=== PATIENT | female | born 1930 | race Caucasian/White ===

== ENCOUNTER 2017-12-16 09:08 | Observation (INO) | payer MEDICARE ==
[~2017-12-16] VITALS: Ht 165.1 cm; Wt 51.9 kg
[~2017-12-16 09:08] MED LIST: AMLODIPINE BESY10 MG; LISINOPRIL10 MG; NORCO 7.5-3251 EACH PO; PLAVIX75 MG PO
[2017-12-16] MEDS ORDERED: ASPIRIN 325 MG TAB PO ONE (09:45)
[2017-12-16 10:36] LABS: BASOPHILS % 0.4 % (0.0-1.0); EOSINOPHILS # (AUTO) 0.1 (0.0-0.4); EOSINOPHILS % 2.1 % (0.0-6.0); HEMATOCRIT 41.2 % (34.2-44.1); HEMOGLOBIN 13.3 g/dL (12.0-16.0); LYMPHOCYTES # (AUTO) 0.8 (1.0-3.2); LYMPHOCYTES % 15.4 % (18.0-39.1); MEAN CORPUSCULAR HEMOGLOBIN 27.9 pg (28-32); MEAN CORPUSCULAR HGB CONC 32.3 g/dL (31-35); MEAN CORPUSCULAR VOLUME 86.6 fL (81-99); MONOCYTES # (AUTO) 1.1 (0.2-0.8); MONOCYTES % 19.7 % (4.4-11.3); NEUTROPHILS # (AUTO) 3.3 (2.1-6.9); PLATELET COUNT 195 x10e3/uL (140-360); RED BLOOD COUNT 4.76 x10e6/uL (3.6-5.1); RED CELL DISTRIBUTION WIDTH 14.3 % (11.7-14.4)
[2017-12-16 10:46] LABS: INR 1.09; PARTIAL THROMBOPLASTIN TIME 27.6 seconds (23.8-35.5); PROTHROMBIN TIME 13.3 seconds (11.9-14.5)
--- NOTE | 2017-12-16 10:49 | Diagnostic Imaging Report ---
PROCEDURE: CHEST SINGLE (PORTABLE) COMPARISON: 10/17/2013. INDICATIONS: CHEST PAIN FINDINGS: Lungs remain well-inflated. No focal consolidation, pleural effusion, or pneumothorax. Stable cardiomediastinal contour with tortuosity of the thoracic aorta. Normal heart size. No pulmonary edema. No acute osseous abnormality. CONCLUSION: No acute cardiopulmonary abnormality. Dictated by: Daniel Zavala M.D. on 12/16/2017 at 10:52 Electronically approved by: Daniel Zavala M.D. on 12/16/2017 at 10:52
[2017-12-16 10:53] LABS: ALBUMIN/GLOBULIN RATIO 1.3 (0.8-2.0); ANION GAP 12.9 mmol/L (8-16); CALCIUM 9.8 mg/dL (8.4-10.2); CREATININE, SERUM 1.28 mg/dL (0.57-1.11); POTASSIUM 3.9 mmol/L (3.5-5.1)
[2017-12-16] MEDS ORDERED: SODIUM CHLORIDE 0.9% 500ML 500 ML IV ONE (11:45)
--- NOTE | 2017-12-16 14:02 | Diagnostic Imaging Report ---
EXAM: CTA OF THE THORACIC AORTA INDICATION: \S\r/o dissection \[id number] \S\1300 COMPARISON: Chest radiograph 12/16/2017 and 10/17/2013 TECHNIQUE: Multi-detector CT technology was employed. CTA Gated axial imaging of the chest was performed after the administration of IV contrast. IV CONTRAST: 100 mL of Omnipaque 350 ORAL CONTRAST: None COMPLICATIONS: None RADIATION DOSE: Total DLP: 618.97 mGy*cm Estimated effective dose: (DLP x 0.015 x size factor) mSv CTDIvol has been reviewed. It is below the limits set by the Radiation Protocol Committee (RPC). For optimization of anatomic evaluation, multiplanar reconstruction, maximum intensity projections, and advanced 3-D off-line postprocessing were performed on a dedicated stand-alone workstation under the direct supervision of the interpreting physician. FINDINGS: Potential study limitations: None. LINES/ TUBES: None. VASCULAR WITH ADVANCED 3-D OFF-LINE POSTPROCESSING: Aortic valve morphology is trileaflet and contains mild calcifications. Borderline size of the aortic root at the sinus of Valsalva (3.8 cm) and mild ectasia of the ascending thoracic aorta (4.0 cm). The remaining thoracic aorta is normal in course, caliber, and contour. There is no acute aortic pathology, such as dissection, intramural hematoma, or contained rupture. Aortic plaques: Minimal atherosclerotic changes throughout the aortic arch and descending thoracic segment. The arch vessel branching pattern is common origin of the innominate and left common carotid arteries. Mild ectasia of the innominate artery, measuring 1.7 cm. All of the arch branch vessels appear widely patent in their proximal portions. Moderate calcified plaque in the proximal left subclavian artery results in minimal stenosis. Core Stacker dimensions of the thoracic aorta are as follows: 2.8 cm at the aortic annulus 3.8 cm at the sinuses of Valsalva (the sinotubular junction is preserved) 4.0 cm at the mid ascending aorta 3.5 cm at the distal ascending aorta 3.1 cm at the mid transverse arch 2.6 cm at the proximal descending thoracic aorta 2.6 cm at the diaphragmatic hiatus. The visualized suprarenal abdominal aorta is normal in caliber. Mild nonobstructing atherosclerotic calcifications of the proximal celiac trunk and SMA. LUNGS AND AIRWAYS: Mild bronchiectasis with linear scarring in the medial left lower lobe. No consolidations. 2 mm right middle lobe calcified granuloma on series 4, image 32 is nonspecific. No suspicious pulmonary nodules. PLEURA: The pleural spaces are clear. HEART AND MEDIASTINUM: The thyroid gland is normal. No mediastinal, hilar or axillary lymphadenopathy. The main pulmonary artery is normal in size. No filling defects in the main pulmonary artery and major branches. Small hiatal hernia. The cardiac chambers demonstrate normal atrioventricular and ventriculoarterial concordance, and systemic and pulmonary venous return. Biatrial enlargement. The coronary arteries have normal origins and courses. There are diffuse coronary calcifications identified, mainly in the LAD distribution, though this study was not optimized for coronary artery evaluation. There is no pericardial effusion. LIMITED ABDOMEN: 0.8 cm low-attenuation cyst in the right kidney. Bilateral cortical renal scarring. BONES: Hemangioma at T5 vertebral body. Levoscoliosis of the lower thoracic spine. Diffuse bony mineralization. Multilevel degenerative changes throughout the thoracic and upper lumbar spine. IMPRESSION: 1. Borderline size of the aortic root at the sinus of Valsalva (3.8 cm) and mild ectasia of the ascending thoracic aorta (4.0 cm). There is no acute aortic pathology. Specifically, no aortic dissection. Recommend follow-up CT chest in 12 months. 2. Calcified plaque in the proximal left subclavian artery appears to result in mild stenosis. 3. Diffuse coronary artery calcification, worse in the LAD. 4. Normal size of the pulmonary artery. No filling defects in the main pulmonary artery or major branches. Signed by: Dr. Peg Branch M.D. on 12/16/2017 1:58 PM
[2017-12-16] MEDS ORDERED: SODIUM CHLORIDE 0.9% 50ML 0 ML ONE (14:29)
[2017-12-16] MEDS ORDERED: IOPAMIDOL 370 MG/ML 200 ML INFUS..BTL INJ ONE (14:29)
[2017-12-16] MEDS ORDERED: SODIUM CHLORIDE 0.9% 100 ML ONE (14:34)
[2017-12-16 15:43] VITALS: BP 131/86
[2017-12-16 15:46] VITALS: BP 131/86
[2017-12-16 17:57] LABS: CHOL/HDL RATIO 2.9 (3.0-3.6)
[2017-12-16 18:20] LABS: CREATINE KINASE MB 2.5 ng/mL (0-5.0)
--- NOTE | 2017-12-16 18:20 | Diagnostic Imaging Report ---
Examination: CT BRAIN WITHOUT CONTRAST History:Left-sided weakness. Comparison studies:10/17/2013 CT head Technique: Axial images were obtained from the skull base to the vertex. Coronal and sagittal images reconstructed from the axial data. Intravenous contrast: None Findings: See impression. Impression: 1. No new or acute intracranial abnormality. No change from prior head CT performed 10/17/2013. 2. 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 Prominent areas of dural calcification noted near the vertex. 3. Chronic right striatocapsular lacunar infarct. 4. Moderate chronic small vessel ischemic changes in the supratentorial white matter. The images and preliminary report of Dr. Homar Deutsch were reviewed and signed by Dr. Marlen Caldera, neuroradiology faculty, on 12/16/2017 at 2141 hours. Signed by: Dr. Marlen Caldera M.D. on 12/16/2017 9:42 PM
--- NOTE | 2017-12-16 18:26 | History and Physical ---
PRIMARY CARE PHYSICIAN: Dr. Javier Cristina CHIEF COMPLAINT: Left arm tingling. HISTORY OF PRESENT ILLNESS: This is an 87-year-old woman with a history of stroke, who recently developed left-sided weakness, left arm and left leg weakness. Developed tingling of the left arm and left back pain prompting her visit to the hospital. The patient had mild nausea as well. All of her symptoms have now resolved. She does have residual weakness. She also has facial asymmetry since the last stroke. There has been no change in degree of asymmetry. There has been no facial droop. No confusion. All history has been obtained from the patient's daughter at the bedside. PAST MEDICAL HISTORY: Stroke with residual left-sided weakness, brain tumor in 196, which was benign, hypertension, legal blindness, history of seizures. PAST SURGICAL HISTORY: Appendectomy. ALLERGIES: PER ELECTRONIC MEDICAL RECORD. FAMILY HISTORY/SOCIAL HISTORY: Patient is . She has 2 children. No alcohol, illicits or cigarettes. MEDICATIONS: Per electronic medical record. REVIEW OF SYSTEMS: Denies any dizziness or chest pain. PHYSICAL EXAMINATION VITAL SIGNS: Have been reviewed. GENERAL: A tired-appearing woman resting in bed. HEENT: Atraumatic. CARDIOVASCULAR: Normal S1 and S2. LUNGS: Moderate breath sounds. ABDOMEN: Soft, nontender and nondistended. EXTREMITIES: No edema or calf tenderness. NEUROLOGICAL: Alert and appropriate. She is blind. She has left arm and left leg 4/5 motor strength. All other extremities are 4/5. SKIN: Dry. PSYCHIATRIC: Normal affect. LABS: Reviewed. MEDICATIONS: Reviewed. ASSESSMENT: An 87-year-old woman with: 1. Left arm paresthesia. 2. Acute kidney injury. 3. Hypertension. 4. History of stroke. 5. History of brain tumor. PLAN 1. Will obtain CT of the brain to evaluate for any acute stroke. 2. Will consult physical therapy. 3. Obtain urinalysis as UTI could be a cause of her paresthesia. 4. Continue Plavix and aspirin. 5. Obtain lipid panel. 6. CT of the chest reviewed. 7. Questionable aortic ectasia seen and recommended for followup in 12 months. 8. Blood pressure has improved. 9. Use Lovenox and Pepcid for GI and DVT prophylaxis. 10. Disposition. Follow up CT of the brain and urinalysis. Job#: [id number] RI
[2017-12-16 20:00] VITALS: BP 146/75
[2017-12-16 21:00] VITALS: BP 146/75
[2017-12-17 00:30] VITALS: BP 123/77
[2017-12-17 02:28] LABS: CREATINE KINASE MB 2.3 ng/mL (0-5.0)
[2017-12-17 05:30] VITALS: BP 126/75
[2017-12-17 06:43] LABS: CREATINE KINASE MB 2.3 ng/mL (0-5.0)
[2017-12-17] MEDS ORDERED: ASPIRIN81 MG PO (06:59)
[2017-12-17] MEDS ORDERED: PRAVASTATIN SOD20 MG PO (06:59)
[2017-12-17 07:26] LABS: CHOL/HDL RATIO 3.1 (3.0-3.6)
[2017-12-17] MEDS ORDERED: FAMOTIDINE 20 MG TAB PO SCH (07:30)
[2017-12-17 07:36] VITALS: BP 120/74
[2017-12-17 07:37] LABS: BILIRUBIN,URINE NEGATIVE (NEGATIVE); CLARITY,URINE CLEAR (CLEAR); COLOR,URINE YELLOW (YELLOW); KETONES,URINE NEGATIVE (NEGATIVE); LEUKOCYTE ESTERASE ,URINE NEGATIVE (NEGATIVE); NITRITE,URINE NEGATIVE (NEGATIVE); PROTEIN,URINE DIPSTICK NEGATIVE (NEGATIVE); URINE UROBILINOGEN 0.2 mg/dL (0.2 - 1)
[2017-12-17 07:54] LABS: BACTERIA,URINE RARE /HPF; EPITHELIAL CELLS,URINE RARE /LPF; RBC,URINE 0-5 /HPF (0-5)
[2017-12-17 08:00] VITALS: BP 120/74
[2017-12-17] MEDS ORDERED: CLOPIDOGREL BISULFATE 75 MG TAB PO SCH (09:00)
[2017-12-17] MEDS ORDERED: ASPIRIN 325 MG TAB EC PO SCH (09:00)
[2017-12-17] MEDS ORDERED: AMLODIPINE BESYLATE 10 MG TAB PO SCH (09:00)
[2017-12-17] MEDS ORDERED: AMLODIPINE BESYLATE 5 MG TAB PO SCH (09:00)
[2017-12-17] MEDS ORDERED: ENOXAPARIN SOD INJ 40 MG/0.4 ML SYR SC SCH (17:00)
== END 2017-12-17 09:50 | disposition home or self-care (01) ==
LOC: ER 09:08 → ERHOLD 14:27 → IMCU 15:06
PROVIDERS: ADMIT Internal Medicine; ATTEND Internal Medicine
DX: R20.2 Paresthesia of skin (principal); N17.9 Acute kidney failure, unspecified; I10 Essential (primary) hypertension; I69.398 Other sequelae of cerebral infarction; R11.0 Nausea; R53.1 Weakness; M54.9 Dorsalgia, unspecified
CPT/HCPCS: 36415; 70450; 71045; 71275; 80053; 80061 ×2; 81001; 82550 ×2; 82553 ×2; 83880; 84484 ×2; 85025; 85610; 85730; 93005; 99284; G0378 ×2; J7040; J7050; Q9967

== ENCOUNTER 2018-01-24 21:01 | Emergency (ER) | payer MEDICARE ==
[~2018-01-24] VITALS: Ht 165.1 cm; Wt 49.9 kg
[~2018-01-24 21:01] MED LIST changes: +ASPIRIN81 MG PO; +PRAVASTATIN SOD20 MG PO
[2018-01-24] MEDS ORDERED: ONDANSETRON HCL INJ 2 MG/ML VIAL IV STA (21:10)
[2018-01-24] MEDS ORDERED: SODIUM CHLORIDE 0.9% 1000ML 1,000 ML IV SCH (21:15)
== END 2018-01-24 23:13 | disposition home or self-care (01) ==
LOC: FSED 21:01
DX: R11.2 Nausea with vomiting, unspecified (principal); M54.5 Low back pain; N39.0 Urinary tract infection, site not specified; I10 Essential (primary) hypertension; Z86.73 Personal history of transient ischemic attack (TIA), and cerebral infarction without residual deficits
CPT/HCPCS: 99283; J2405

== ENCOUNTER 2018-06-13 11:01 | Emergency (ER) | payer MEDICARE ==
[~2018-06-13] VITALS: Ht 165.1 cm; Wt 47.6 kg
--- NOTE | 2018-06-13 11:49 | Diagnostic Imaging Report ---
EXAMINATION: CXR 2 VIEW - HOPD INDICATION: Cough and congestion COMPARISON: Chest x-ray 12/16/2017 FINDINGS: PA and lateral views TUBES and LINES: None. LUNGS: Lungs are well inflated. Bilateral peribronchial cuffing. There is no evidence of pneumonia or pulmonary edema. PLEURA: No pleural effusion or pneumothorax. HEART AND MEDIASTINUM: The cardiomediastinal silhouette is unremarkable. BONES AND SOFT TISSUES: No acute osseous lesion. Levoscoliotic changes in the lower thoracic spine. Soft tissues are unremarkable. UPPER ABDOMEN: No free air under the diaphragm. IMPRESSION: Bilateral peribronchial cuffing, which could represent viral etiology or reactive airway disease. Signed by: Dr. Ritesh Singer M.D. on 06/13/2018 11:46 AM
[2018-06-13 12:09] VITALS: BP 165/82
== END 2018-06-13 12:11 | disposition home or self-care (01) ==
LOC: FSED 11:01
DX: R05 Cough (principal); J20.8 Acute bronchitis due to other specified organisms
CPT/HCPCS: 71046; 87400; 99283

== ENCOUNTER 2018-10-14 10:30 | Emergency (ER) | payer MEDICARE ==
[~2018-10-14] VITALS: Ht 165.1 cm; Wt 47.6 kg
[2018-10-14] MEDS ORDERED: FAMOTIDINE 20 MG/2 ML VIAL IV STA (11:08)
[2018-10-14] MEDS ORDERED: SODIUM CHLORIDE 0.9% 500ML 500 ML IV ONE (11:15)
[2018-10-14] MEDS ORDERED: ONDANSETRON HCL INJ 2MG/ML 2ML 2 MG/ML VIAL IV ONE (11:30)
[2018-10-14] MEDS ORDERED: MORPHINE SULFATE INJ 4 MG/ML INJ 1ML IV ONE (11:30)
[2018-10-14] MEDS ORDERED: IOPAMIDOL 300MG/ML 100 ML INFUS..BTL IV ONE (12:45)
--- NOTE | 2018-10-14 13:33 | Diagnostic Imaging Report ---
EXAM: CT Abdomen and Pelvis WITH contrast INDICATION: Abdominal pain COMPARISON: None. TECHNIQUE: Abdomen and pelvis were scanned utilizing a multidetector helical scanner from the lung base to the pubic symphysis after administration of IV contrast. Coronal and sagittal reformations were obtained. Routine protocol was performed. Scan was performed when during portal venous phase. Dose modulation, iterative reconstruction, and/or weight based adjustment of the mA/kV was utilized to reduce the radiation dose to as low as reasonably achievable. IV CONTRAST: 100 mL of Isovue-300 ORAL CONTRAST: None RADIATION DOSE: Total DLP: 238.58 mGy*cm Estimated effective dose: (DLP x 0.015 x size factor) mSv COMPLICATIONS: None FINDINGS: LINES and TUBES: None. LOWER THORAX: Lung bases clear. Minimal atelectasis at the left lung base. Heart size normal. Small hiatus hernia noted. HEPATOBILIARY: 5 mm hypodensity in the right lobe of the liver, too small to fully characterize but likely small cyst. No other focal hepatic lesions. No biliary ductal dilation. GALLBLADDER: No radio-opaque stones or sludge. No wall thickening. SPLEEN: No splenomegaly. PANCREAS: No focal masses or ductal dilatation. Pancreatic duct measures 3 mm at the head, upper limits of normal. ADRENALS: No adrenal nodules KIDNEYS/URETERS: Kidneys enhance symmetrically. No hydronephrosis. 7 mm hypodensity at the posterior upper pole right kidney, likely small cyst. Lobulated contour of each kidney compatible with cortical scarring. No stones. GI TRACT: No abnormal distention, wall thickening, or evidence of bowel obstruction. There is a large volume of retained stool throughout the colon which may be seen with constipation. The appendix is not seen, compatible with history of appendectomy as indicated on the worksheet. PELVIC ORGANS/BLADDER: Urinary bladder unremarkable. The uterus is retroverted and extends to the left of midline. No discrete abnormal mass or fluid collection in the pelvis. LYMPH NODES: No dominant lymph node mass is seen in the abdomen, retroperitoneum or pelvis. VESSELS: Aortoiliac vessels are atherosclerotic with calcified plaques. Iliac arteries are tortuous. No abdominal aortic aneurysm or dissection. IVC and portal system unremarkable. PERITONEUM / RETROPERITONEUM: No pneumoperitoneum or ascites. BONES: No acute or suspicious bony lesions. Moderately severe thoracolumbar scoliosis and degenerative change noted. SOFT TISSUES: Superficial surrounding soft tissue unremarkable. No intramuscular is seen anterior to the right hip. IMPRESSION: 1. No CT evidence for acute abdominal or pelvic pathology. 2. Large volume of stool throughout the colon may be seen with constipation. 3. Lobulated contour of the kidneys likely representing cortical scarring. Staff: Saray Signed by: Dr. Mac So M.D. on 10/14/2018 1:30 PM
[2018-10-14 13:45] VITALS: BP 147/72
== END 2018-10-14 13:52 | disposition home or self-care (01) ==
LOC: FSED 10:30
DX: R10.84 Generalized abdominal pain (principal); K59.00 Constipation, unspecified; I10 Essential (primary) hypertension; H54.7 Unspecified visual loss; K21.9 Gastro-esophageal reflux disease without esophagitis; Z86.73 Personal history of transient ischemic attack (TIA), and cerebral infarction without residual deficits
CPT/HCPCS: 74177; 80048; 80076; 81003; 84484; 85025; 99284; J2270; J2405; J7040; Q9967

== ENCOUNTER 2018-12-18 12:41 | Observation (INO) | payer MEDICARE ==
[~2018-12-18] VITALS: Ht 165.1 cm; Wt 53.8 kg
[~2018-12-18 12:41] MED LIST changes: -AMLODIPINE BESY10 MG; +AMLODIPINE BESY10 MG PO; -LISINOPRIL10 MG; +LISINOPRIL10 MG PO
[2018-12-18] MEDS ORDERED: PANTOPRAZOLE 40 MG 10ML VIAL IV STA (14:12)
[2018-12-18] MEDS ORDERED: ONDANSETRON HCL INJ 2MG/ML 2ML 2 MG/ML VIAL IV STA (14:12)
[2018-12-18] MEDS ORDERED: SODIUM CHLORIDE 0.9% 1000ML 1,000 ML IV STA (14:12)
[2018-12-18 14:21] LABS: BASOPHILS % 0.1 % (0.0-1.0); EOSINOPHILS % 0.3 % (0.0-6.0); HEMOGLOBIN 12.1 g/dL (12.0-16.0); LYMPHOCYTES # (AUTO) 0.7 (1.0-3.2); LYMPHOCYTES % 7.2 % (18.0-39.1); MEAN CORPUSCULAR HEMOGLOBIN 28.8 pg (28-32); MEAN CORPUSCULAR HGB CONC 33.6 g/dL (31-35); MEAN CORPUSCULAR VOLUME 85.7 fL (81-99); MONOCYTES # (AUTO) 0.7 (0.2-0.8); MONOCYTES % 7.8 % (4.4-11.3); NEUTROPHILS # (AUTO) 7.6 (2.1-6.9); NEUTROPHILS % 83.7 % (38.7-80.0); PLATELET COUNT 262 x10e3/uL (140-360); RED CELL DISTRIBUTION WIDTH 13.7 % (11.7-14.4)
[2018-12-18 14:25] LABS: INR 0.89; PROTHROMBIN TIME 12.5 seconds (11.9-14.5)
[2018-12-18 14:26] LABS: BILIRUBIN,URINE NEGATIVE (NEGATIVE); CLARITY,URINE SL CLOUDY (CLEAR); COLOR,URINE YELLOW (YELLOW); KETONES,URINE 1+ (NEGATIVE); LEUKOCYTE ESTERASE ,URINE NEGATIVE (NEGATIVE); NITRITE,URINE NEGATIVE (NEGATIVE); PROTEIN,URINE DIPSTICK 1+ (NEGATIVE); URINE UROBILINOGEN 0.2 mg/dL (0.2 - 1)
[2018-12-18 14:26] LABS: PARTIAL THROMBOPLASTIN TIME 30.3 seconds (23.8-35.5)
[2018-12-18 14:36] LABS: ALANINE AMINOTRANSFERASE 19 IU/L (0-55); ALBUMIN 3.2 g/dL (3.5-5.0); ALKALINE PHOSPHATASE 53 IU/L (40-150); ANION GAP 15.2 mmol/L (8-16); BLOOD UREA NITROGEN 20 mg/dL (7-26); BUN/CREATININE RATIO 27 (6-25); CALCIUM 9.8 mg/dL (8.4-10.2); CARBON DIOXIDE 25 mmol/L (22-29); CHLORIDE 97 mmol/L (98-107); CREATINE KINASE 126 IU/L (29-168); CREATININE, SERUM 0.73 mg/dL (0.57-1.11); EST GLOMERULAR FILTRATION RATE > 60 ML/MIN (60-); GLUCOSE 119 mg/dL (74-118); MAGNESIUM 1.7 MG/DL (1.3-2.1); POTASSIUM 3.2 mmol/L (3.5-5.1); SODIUM 134 mmol/L (136-145)
[2018-12-18 14:47] LABS: AMORPHOUS SEDIMENT,URINE FEW (FEW); BACTERIA,URINE FEW /HPF
--- NOTE | 2018-12-18 15:14 | Diagnostic Imaging Report ---
EXAM: CHEST SINGLE (PORTABLE), AP Portable DATE: 12/18/2018 Time stamp on exam: 2:37 PM INDICATION: Vomiting and weakness COMPARISON: 12/16/2017 Exam is characterized by poor inspiration. FINDINGS: LINES/TUBES: None LUNGS: No consolidations or edema. Right basilar subsegmental atelectasis. PLEURA: No effusions or pneumothorax. HEART AND MEDIASTINUM: Normal size and contour. BONES AND SOFT TISSUES: No acute findings. IMPRESSION: No acute thoracic abnormality. Signed by: Dr. Christiano Elkins DO on 12/18/2018 3:10 PM
--- NOTE | 2018-12-18 15:29 | Diagnostic Imaging Report ---
Exam: Head CT without contrast History: Vomiting, weakness, fall x4 days ago on Plavix Comparison studies: Head CT 12/16/2017 Technique: Axial images were obtained from the skull base to the vertex. Coronal and sagittal images reconstructed from the axial data. Dose modulation, iterative reconstruction, and/or weight based adjustment of the mA/kV was utilized to reduce the radiation dose to as low as reasonably achievable. Radiation dose: Total DLP: 832 mGy*cm. Estimated effective dose: DLP x 0.015 Intravenous contrast: None Findings: Scalp and bones: Surgical elizabeth in the left scalp at the vertex. No fracture. Surgical changes of prior right paramedian parieto-occipital craniectomy Brain sulci: Appropriate for age. Ventricles: There may be porencephalic-like communication of a right parietal cystic and 7 when she cavity to the atria the right lateral ventricle. Ventricles are otherwise normal in size. No hydrocephalus. Extra-axial spaces: Unchanged densely calcified 2.0 x 1.6 x 2.2 cm (SI x AP x TV) right parieto-occipital convexity falcine mass which is inseparable from the adjacent superior sagittal sinus. Findings raise the possibility for calcified meningioma or other residual calcified tumor. Parenchyma: Unchanged encephalomalacia and gliosis throughout the right parietal lobe beneath the craniectomy. Ill-defined confluent hypodensities throughout the supratentorial white matter are nonspecific but may reflect chronic microvascular ischemic changes. Unchanged chronic right striatocapsular lacunar infarct. There are chronic insults along the inferior frontal lobe along the gyri recti and left anterior temporal pole, unchanged. Sellar/suprasellar region: No abnormalities. Craniocervical junction: Patent foramen magnum. No Chiari one malformation. Incidental findings: Right sphenoid sinus fluid level could be correlated for sinusitis. IMPRESSION: 1. No acute intracranial abnormalities. 2. Surgical elizabeth in the left scalp at the vertex without underlying fracture. 3. Right sphenoid sinus fluid level could be correlated for sinusitis. Chronic findings: 1. Chronic bilateral inferior frontal and left temporal insults, likely posttraumatic. 2. Right striatocapsular lacunar infarct. 3. Moderate chronic microvascular ischemic changes. 4. Surgical changes of prior right parieto-occipital craniectomy with underlying right parietal lobe encephalomalacia and unchanged right parafalcine/ parietal-occipital convexity dural based dense calcification. Signed by: Dr. Daniel Lebron M.D. on 12/18/2018 3:25 PM
[2018-12-18] MEDS ORDERED: MORPHINE SULFATE 2 MG/ML SYR 1ML IV PRN (16:45)
[2018-12-18] MEDS ORDERED: KCL 40MEQ/0.9% SOD CHL 1,000 ML IV ONE (17:00)
[2018-12-18] MEDS ORDERED: POTASSIUM CHLORIDE 10MEQ/100ML 200 ML IV ONE (17:15)
[2018-12-18] MEDS: MORPHINE SULFATE INJ 4 MG/ML INJ 1ML IV PRN ×2 (17:28→23:05)
[2018-12-18] MEDS: ONDANSETRON HCL INJ 2MG/ML 2ML 2 MG/ML VIAL IV PRN ×2 (17:28→23:06)
--- NOTE | 2018-12-18 17:48 | NUR ---
patient repositioned for comfort and given medication at this time. Patient and family updated on plan of care and admission status.
--- NOTE | 2018-12-18 19:29 | NUR ---
REPORT CALLED TO ZAIDA ESTES AT THIS TIME
[2018-12-18 21:04] VITALS: BP 154/91
[2018-12-18 21:25] VITALS: BP 154/91
--- NOTE | 2018-12-18 21:27 | NUR ---
PATIENT RECEIVED FROM EMERGENCY DEPARTMENT PER D[facility]OTAH AT 1944. SHE'S ALERT AND ORIENTED X3, NON PRODUCTIVE COUGH NOTED AND SHE DENIES RESPIRATORY DISTRESS. TWO GEORGE OBSERVED TO THE BACK OF THE HEAD, BRUISES TO THE LEFT ARM WITH SKIN TEAR AND REDNESS TO THE SACRUM. PATIENT IS BLIND, SOFT CALL LIGHT WITHIN EASY REACH AND SHE DENIES PAIN AT THIS TIME. IV INTACT TO THE RIGHT WRIST WITH IV FLUID INFUSING. BED ALARM ON, WILL CONTINUE TO MONITOR.
--- NOTE | 2018-12-18 23:06 | NUR ---
PATIENT C/O PAIN TO THE BACK AND HEADACHE, MEDICATED WITH MORPHINE AND ZOFRAN ORDERED. BED ALARM ON, CALL LIGHT WITHIN EASY REACH.
[2018-12-19] VITALS (8 sets, daily range): BP systolic 150–178; BP diastolic 75–97
--- NOTE | 2018-12-19 01:42 | NUR ---
REPOSITION IN BED FOR COMFORT, NO PAIN VOICED, BED ALARM ON AND CALL LIGHT WITHIN EASY REACH.
--- NOTE | 2018-12-19 02:22 | NUR ---
PACK PRESS OPERATOR CALLED AND STATED THAT THE PATIENT RHYTHM FLUCTUATES BETWEEN SINUS AND A-FIB. UPON ASSESSMENT, SHE'S ASLEEP WITHOUT DISTRESS. WILL NOTIFY THE ATTENDING PHYSICIAN AT 0700.
[2018-12-19 05:23] LABS: BASOPHILS % 0.4 % (0.0-1.0); EOSINOPHILS # (AUTO) 0.2 (0.0-0.4); EOSINOPHILS % 2.1 % (0.0-6.0); HEMATOCRIT 33.7 % (34.2-44.1); HEMOGLOBIN 11.1 g/dL (12.0-16.0); LYMPHOCYTES # (AUTO) 0.7 (1.0-3.2); LYMPHOCYTES % 8.4 % (18.0-39.1); MEAN CORPUSCULAR HEMOGLOBIN 29.2 pg (28-32); MEAN CORPUSCULAR HGB CONC 32.9 g/dL (31-35); MEAN CORPUSCULAR VOLUME 88.7 fL (81-99); MONOCYTES # (AUTO) 0.9 (0.2-0.8); NEUTROPHILS # (AUTO) 6.5 (2.1-6.9); PLATELET COUNT 242 x10e3/uL (140-360); RED CELL DISTRIBUTION WIDTH 13.6 % (11.7-14.4)
[2018-12-19 05:42] LABS: ALANINE AMINOTRANSFERASE 17 IU/L (0-55); ALBUMIN 2.9 g/dL (3.5-5.0); ALKALINE PHOSPHATASE 48 IU/L (40-150); ANION GAP 15.7 mmol/L (8-16); BLOOD UREA NITROGEN 20 mg/dL (7-26); BUN/CREATININE RATIO 28 (6-25); CALCIUM 9.2 mg/dL (8.4-10.2); CARBON DIOXIDE 21 mmol/L (22-29); CHLORIDE 104 mmol/L (98-107); CREATININE, SERUM 0.72 mg/dL (0.57-1.11); EST GLOMERULAR FILTRATION RATE > 60 ML/MIN (60-); GLUCOSE 86 mg/dL (74-118); POTASSIUM 3.7 mmol/L (3.5-5.1); SODIUM 137 mmol/L (136-145)
--- NOTE | 2018-12-19 05:50 | NUR ---
PATIENT IS SOUNDLY ASLEEP WITHOUT RESPIRATORY DISTRESS, CALL LIGHT WITHIN EASY REACH AND BED ALARM ON.
[2018-12-19 07:28] LABS: CREATINE KINASE MB 3.2 ng/mL (0-5.0)
[2018-12-19] MEDS ORDERED: METOPROLOL SUCC25 MG PO (08:09)
[2018-12-19] MEDS: PANTOPRAZOLE 40 MG 10ML VIAL IV SCH (09:44)
[2018-12-19 13:35] LABS: CREATINE KINASE MB 3.2 ng/mL (0-5.0)
--- NOTE | 2018-12-19 15:58 | NUR ---
PRIMARY CARE PHYSICIAN: Dr. Javier Cristina CHIEF COMPLAINT: Left arm tingling. HISTORY OF PRESENT ILLNESS: This is an 87-year-old woman with a history of stroke, who recently developed left-sided weakness, left arm and left leg weakness. Developed tingling of the left arm and left back pain prompting her visit to the hospital. The patient had mild nausea as well. All of her symptoms have now resolved. She does have residual weakness. She also has facial asymmetry since the last stroke. There has been no change in degree of asymmetry. There has been no facial droop. No confusion. All history has been obtained from the patient's daughter at the bedside. 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 ALLERGIES: PER ELECTRONIC MEDICAL RECORD. FAMILY HISTORY/SOCIAL HISTORY: Patient is . She has 2 children. No alcohol, illicits or cigarettes. MEDICATIONS: Per electronic medical record. REVIEW OF SYSTEMS: Denies any dizziness or chest pain. PHYSICAL EXAMINATION VITAL SIGNS: Have been reviewed. GENERAL: A tired-appearing woman resting in bed. HEENT: Atraumatic. CARDIOVASCULAR: Normal S1 and S2. LUNGS: Moderate breath sounds. ABDOMEN: Soft, nontender and nondistended. EXTREMITIES: No edema or calf tenderness. NEUROLOGICAL: Alert and appropriate. She is blind. She has left arm and left leg 4/5 motor strength. All other extremities are 4/5. SKIN: Dry. PSYCHIATRIC: Normal affect. LABS: Reviewed. MEDICATIONS: Reviewed. ASSESSMENT: An 87-year-old woman with: Acute gastroenteritis Dehydration Hypokalemia HTN Hx stroke Hx brain tumor Debility Gait dysfunction PLAN rehydrate replace K consider flagyl PT; SNF eval for rehab needs Edilberto Brown MD, PhD.
[2018-12-19] MEDS ORDERED: HYDROCODONE/APAP 7.5MG-325MG 1 EA TAB PO PRN (16:45)
--- NOTE | 2018-12-19 17:11 | NUR ---
Nutrition Intervention Note RD Recommendation(s) for Physician: - Advance diet as tolerated to GI soft - Rec Ensure Clear BID to increase protein calorie intake The patient meets criteria for MODERATE protein-calorie malnutrition. Plan of Care: RD following, monitoring for tolerance and adequacy, ONS rec Nutrition reason for involvement: RN Consult - weight loss, request for ONS RD Assessment 12/19 - 88yo F, who was admitted for dehydration, hypokalemia and vomiting. K WNL today. CXR WNL. ZAIDA Rasmussen consulted RD as family requested for Ensure. Visited pt in the room. 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 Today, pt feels alot better without any nausea. No vomiting episode noted. Tolerating clear liquid diet. Per family, pt has lost ~15lbs within the last year. Pt has had some moderate fat/ muscle loss upon NFPA (see below). ONS has been ordered. Will continue to monitor and follow. Principal Problems/Diagnoses: dehydration, hypokalemia and vomiting PMH: CVA, HTN GI: abdomen soft, non-tender, round, flatus present Skin: no pressure wound noted Labs: (12/19) reviewed Meds: protonix Ht: 65in Wt: 105 - 107lb (verified with family) BMI: 17.8kg/m2 IBW: 125lb Malnutrition Evaluation (12/19) The patient meets criteria for MODERATE protein-calorie malnutrition. Energy intake: <75% of estimated energy requirements for >3 months Weight loss: 8.75% weight loss in a year - not meeting criteria Fat loss: Moderate - hollow orbital region, apparent ribs Muscle loss: Moderate - temporal depression, depression of interosseous muscle Supporting Evidence: Fluid accumulation: None Functional Status: reduced Nutrition Prescription (Diet Order): clear liquid diet Estimated Nutritional Needs: Calories: 1440 - 1680kcal(30-35kcal/kg/d) Weight used: CBW Protein: 72 - 96g (1.5-2g/kg/d) Weight used: CBW Diet Adequacy: Not meeting calorie needs, Not meeting protein needs Diet Education Needs Assessment: Diet education not indicated. Nutrition Care Level: Mod Nutrition Diagnosis: Moderate (chronic) malnutrition related to inadequate oral intake as evidenced by <75% of estimated energy requirements for >3 months and modrate fat/ muscle loss. Goal: Patient will meet 75-100% of estimated needs by follow up Progress: Progressing Interventions: Modified diet, Commercial beverage Monitoring/Evaluation: Total energy intake, Total protein intake, Modified diet, Liquid supplement, Weight change Signed: Radha Mota MS, RD, LD
[2018-12-19] MEDS: AMLODIPINE BESYLATE 10 MG TAB PO SCH (17:30)
[2018-12-19] MEDS: METOPROLOL SUCCINATE 25 MG TAB XL PO SCH (17:31)
[2018-12-19] MEDS: LABETALOL HCL 5 MG/ML 20ML VIAL IV PRN (21:20)
[2018-12-19] MEDS: HYDROCODONE/APAP 7.5MG-325MG 1 EA TAB PO PRN (21:20)
--- NOTE | 2018-12-19 21:20 | NUR ---
PATIENT INCONTINENT OF URINE, SHE'S KEPT CLEAN AND DRY. BLOOD PRESSURE 166/97, MEDICATED WITH LABETALOL ORDERED. PATIENT C/O PAIN TO THE BACK, MEDICATED WITH NORCO 1TAB ORDERED, SHE'S REPOSITION IN BED FOR COMFORT. CALL LIGHT WITHIN EASY REACH, BED ALARM ON.
--- NOTE | 2018-12-19 22:40 | NUR ---
TELEMETRY CALL AND STATED THAT THE PATIENT'S HEART RATE WAS 140. UPON ASSESSMENT SHE WAS ATTEMPTING TO GET OUT OF THE BED. SHE WAS KEPT CLEAN AND DRY, REPOSITION IN BED FOR COMFORT AND SHE DENIES PAIN. BED ALARM ON, CALL LIGHT WITHIN EASY REACH.
[2018-12-20] VITALS (8 sets, daily range): BP systolic 136–174; BP diastolic 74–96
--- NOTE | 2018-12-20 02:15 | NUR ---
PATIENT INCONTINENT OF URINE, SHE'S KEPT CLEAN AND DRY. SHE WAS OBSERVED SEVERAL TIMES TAKING OFF HER GOWN AND TRYING TO TAKE OFF THE HEART MONITOR. PATIENT REORIENTED, BED ALARM ON AND CALL LIGHT WITHIN EASY REACH.
[2018-12-20] MEDS: LABETALOL HCL 5 MG/ML 20ML VIAL IV PRN ×2 (04:25→08:29)
--- NOTE | 2018-12-20 06:29 | NUR ---
CONDITION STABLE WITHOUT RESPIRATORY DISTRESS, SHE DENIES PAIN. SHE'S YELLING OUT "BRIDGETT", SHE'S ORIENTED X3, TAKES OFF HER TELEMETRY AND IS VERY FORGETFUL. BED ALARM ON, CALL LIGHT WITHIN EASY REACH.
[2018-12-20] MEDS: CLOPIDOGREL BISULFATE 75 MG TAB PO SCH (08:28)
[2018-12-20] MEDS: AMLODIPINE BESYLATE 10 MG TAB PO SCH (08:28)
[2018-12-20] MEDS: PANTOPRAZOLE 40 MG 10ML VIAL IV SCH (08:29)
[2018-12-20] MEDS: LISINOPRIL 20 MG TAB PO SCH (08:29)
[2018-12-20] MEDS: METOPROLOL SUCCINATE 25 MG TAB XL PO SCH ×2 (08:29→17:18)
[2018-12-20] MEDS ORDERED: AMLODIPINE BESYLATE 10 MG TAB PO SCH (09:00)
--- NOTE | 2018-12-20 10:41 | NUR ---
ORDERED ALF PLACEMENT. NO PHYSICAL THERAPY NOTES TO INITIATE ALF EVALUATION. CM SPOKE TO MD AND RECEIVED VERBAL ORDER FOR PHYSICAL THERAPY CONSULT. PENDING ASSESSMENT AND RECOMMENDATION TO PROCEED.
--- NOTE | 2018-12-20 10:56 | NUR ---
IM- progress note O/N no events REVIEW OF SYSTEMS: Denies any dizziness or chest pain. PHYSICAL EXAMINATION VITAL SIGNS: Have been reviewed. GENERAL: A tired-appearing woman resting in bed. HEENT: Atraumatic. CARDIOVASCULAR: Normal S1 and S2. LUNGS: Moderate breath sounds. ABDOMEN: Soft, nontender and nondistended. EXTREMITIES: No edema or calf tenderness. NEUROLOGICAL: Alert and appropriate. She is blind. She has left arm and left leg 4/5 motor strength. All other extremities are 4/5. SKIN: Dry. PSYCHIATRIC: Normal affect. LABS: Reviewed. MEDICATIONS: Reviewed. ASSESSMENT: An 87-year-old woman with: Acute gastroenteritis Dehydration Hypokalemia HTN Hx stroke Hx brain tumor PLAN rehydrate replace K consider flagyl PT; SNF eval for rehab needs 12/20 cont PT; control BP. Edilberto Brown MD, PhD.
[2018-12-20] MEDS ORDERED: ONDANSETRON HCL 4 MG ORAL DISINTEGRATING TAB PO PRN (14:30)
--- NOTE | 2018-12-20 19:45 | NUR ---
RECEIVED PATIENT. PATIENT WAS YELLING "BRIDGETT". PATIENT THOUGHT SHE WAS AT HOME WITH HER SISTER. REORIENTED PATIENT. CONTACTED WITH DAUGHTER TO COME UP AND BE WITH PATIENT. CALL LIGHT WITHIN REACH. BED LOW/LOCKED. CONTINUE TO MONITOR CLOSELY
[2018-12-20] MEDS: MORPHINE SULFATE INJ 4 MG/ML INJ 1ML IV PRN (19:57)
[2018-12-20] MEDS ORDERED: ONDANSETRON HCL INJ 2MG/ML 2ML 2 MG/ML VIAL IV PRN (20:00)
--- NOTE | 2018-12-20 21:35 | NUR ---
PATIENT IS RESTING QUIETLY IN BED. DAUGHTER AT BED SIDE. BED LOW/LOCKED. CONTINUE TO MONITOR CLOSELY
[2018-12-20] MEDS: HYDROCODONE/APAP 7.5MG-325MG 1 EA TAB PO PRN (23:08)
[2018-12-21] VITALS (7 sets, daily range): BP systolic 132–158; BP diastolic 73–87
--- NOTE | 2018-12-21 07:00 | NUR ---
BEDSIDE SHIFT REPORT RECEIVED FROM [facility] RN. PT DENIES NEEDS AT THIS TIME.
--- NOTE | 2018-12-21 07:13 | NUR ---
IM- progress note O/N no events REVIEW OF SYSTEMS: Denies any dizziness or chest pain. PHYSICAL EXAMINATION VITAL SIGNS: Have been reviewed. GENERAL: A tired-appearing woman resting in bed. HEENT: Atraumatic. CARDIOVASCULAR: Normal S1 and S2. LUNGS: Moderate breath sounds. ABDOMEN: Soft, nontender and nondistended. EXTREMITIES: No edema or calf tenderness. NEUROLOGICAL: Alert and appropriate. She is blind. She has left arm and left leg 4/5 motor strength. All other extremities are 4/5. SKIN: Dry. PSYCHIATRIC: Normal affect. LABS: Reviewed. MEDICATIONS: Reviewed. ASSESSMENT: An 87-year-old woman with: Acute gastroenteritis Dehydration Hypokalemia HTN Hx stroke Hx brain tumor PLAN rehydrate replace K consider flagyl PT; SNF eval for rehab needs 12/20 cont PT; control BP. 12/21 snf placement pending; Edilberto Brown MD, PhD.
[2018-12-21] MEDS ORDERED: PROTONIX40 MG/ML PO (07:15)
[2018-12-21] MEDS ORDERED: TOPROL XL25 MG PO (07:15)
[2018-12-21] MEDS: PANTOPRAZOLE SOD 40 MG TABEC PO SCH (08:27)
[2018-12-21] MEDS: METOPROLOL SUCCINATE 25 MG TAB XL PO SCH ×2 (08:28→16:44)
[2018-12-21] MEDS: LISINOPRIL 20 MG TAB PO SCH (08:28)
[2018-12-21] MEDS: CLOPIDOGREL BISULFATE 75 MG TAB PO SCH (08:28)
[2018-12-21] MEDS: AMLODIPINE BESYLATE 10 MG TAB PO SCH (08:28)
--- NOTE | 2018-12-21 10:45 | Diagnostic Imaging Report ---
Exam: Intracranial MRA without IV contrast History: Left-sided weakness Comparison studies: Head CT 12/18/2018. Technique: Neck MRA: Axial 2-D [id number] with 3-D MIP reformats. Intracranial MRA: Axial 3-D [id number] with coronal, sagittal and 3-D MIP reformats. Contrast: None Findings: Neck MRA: If present, stenosis at the carotid bulbs is measured utilizing NASCET criteria which compares the narrowest ICA diameter at the carotid bulb to the diameter of the normal distal cervical ICA. Exam is limited by motion artifacts. In spite of limitations: Aortic arch: Suboptimal evaluated due to motion artifacts. No gross abdomen malleus. Common carotid arteries: Patent, no flow signal abnormalities. The left common carotid artery arises from the left brachycephalic trunk. Carotid bulbs: Patent with no (0%) stenosis bilaterally by NASCET criteria. Internal carotid arteries: Patent, no flow signal abnormalities. Mildly tortuous (right greater than left). Vertebral arteries: Patent, no flow signal abnormalities. Intracranial MRA: No aneurysm identified. No arterial vascular malformation identified within the imaged field. Anterior circulation: Internal carotid arteries: Patent, no flow abnormalities. Anterior cerebral arteries: Patent, no proximal branch occlusion or stenosis. Middle cerebral arteries: Patent, no proximal branch occlusion or stenosis. Posterior circulation: Vertebral arteries: Patent, no flow signal abnormalities. Basilar artery: Patent, no flow signal abnormalities. 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 Posterior cerebral arteries: The left P1 segment is not visualized and may be hypoplastic beyond resolution of MRA or congenitally absent. The left BISQUE WARE DIPPER is supplied via a prominent left posterior commuting indicating artery (left BISQUE WARE DIPPER origin). Anatomical variants: Acom: Visualized with with trifurcated A2 segments. Pcoms: Left BISQUE WARE DIPPER origin. Not visualized on the right. Vertebral arteries: Left is dominant. Other: Fenestration at the vertebral basilar junction. IMPRESSION: Neck MRA: 1. Patent carotid and vertebral arteries without flow limiting stenosis. 2. No (0%) stenosis at the carotid bulbs. Intracranial MRA 1. No major branch occlusion or flow-limiting stenosis in the [place]. 2. Incidental anatomical variants as described. Signed by: Dr. Daniel Lebron M.D. on 12/21/2018 10:42 AM
--- NOTE | 2018-12-21 10:45 | Diagnostic Imaging Report ---
Exam: Intracranial MRA without IV contrast History: Left-sided weakness Comparison studies: Head CT 12/18/2018. Technique: Neck MRA: Axial 2-D [id number] with 3-D MIP reformats. Intracranial MRA: Axial 3-D [id number] with coronal, sagittal and 3-D MIP reformats. Contrast: None Findings: Neck MRA: If present, stenosis at the carotid bulbs is measured utilizing NASCET criteria which compares the narrowest ICA diameter at the carotid bulb to the diameter of the normal distal cervical ICA. Exam is limited by motion artifacts. In spite of limitations: Aortic arch: Suboptimal evaluated due to motion artifacts. No gross abdomen malleus. Common carotid arteries: Patent, no flow signal abnormalities. The left common carotid artery arises from the left brachycephalic trunk. Carotid bulbs: Patent with no (0%) stenosis bilaterally by NASCET criteria. Internal carotid arteries: Patent, no flow signal abnormalities. Mildly tortuous (right greater than left). Vertebral arteries: Patent, no flow signal abnormalities. Intracranial MRA: No aneurysm identified. No arterial vascular malformation identified within the imaged field. Anterior circulation: Internal carotid arteries: Patent, no flow abnormalities. Anterior cerebral arteries: Patent, no proximal branch occlusion or stenosis. Middle cerebral arteries: Patent, no proximal branch occlusion or stenosis. Posterior circulation: Vertebral arteries: Patent, no flow signal abnormalities. Basilar artery: Patent, no flow signal abnormalities. 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 Posterior cerebral arteries: The left P1 segment is not visualized and may be hypoplastic beyond resolution of MRA or congenitally absent. The left WEIGHT CONTROL ENGINEER is supplied via a prominent left posterior commuting indicating artery (left WEIGHT CONTROL ENGINEER origin). Anatomical variants: Acom: Visualized with with trifurcated A2 segments. Pcoms: Left WEIGHT CONTROL ENGINEER origin. Not visualized on the right. Vertebral arteries: Left is dominant. Other: Fenestration at the vertebral basilar junction. IMPRESSION: Neck MRA: 1. Patent carotid and vertebral arteries without flow limiting stenosis. 2. No (0%) stenosis at the carotid bulbs. Intracranial MRA 1. No major branch occlusion or flow-limiting stenosis in the [place]. 2. Incidental anatomical variants as described. Signed by: Dr. Daniel Lebron M.D. on 12/21/2018 10:42 AM
--- NOTE | 2018-12-21 11:21 | Diagnostic Imaging Report ---
History: Left-sided weakness, tumor removed in the 1960s Comparison studies: None Technique: Sagittal and axial T2 FS, axial DWI, axial T2*GRE, axial T1 FLAIR and axial coronal T2 FLAIR. Intravenous contrast: None Findings: Scalp and bone marrow: Surgical changes of prior right paramedian parietal occipital craniectomy with small pseudomeningocele which extends into the adjacent bilateral parietal occipital scalp. Brain sulci: Appropriate for age. Ventricles: There is ex vacuo dilatation of the right lateral ventricle with porencephalic-like communication of the right lateral to an encephalomalacic cavity in the right parietal lobe as described below. Mild compensatory dilatation of the left lateral and third ventricles. There is nonspecific foci of restricted diffusion within the occipital horns of both lateral ventricles. No hydrocephalus. Extra axial spaces: There is smooth nonspecific dural thickening along the falx, right tentorium and beneath the right parietal craniotomy. There is also nonspecific smooth dural thickening over the left cerebral convexity with a 6 mm thick extra-axial fluid collection at the left parietal convexity near the vertex. Unchanged nonspecific dense calcification at the right paramedian parieto-occipital convexity which extends along the falx. A 15 mm partially calcified lesion along the falx is unchanged from exams which date to 2014 and probably represents meningioma. Parenchyma: No intra-axial mass, acute hemorrhage or acute ischemia. Unchanged encephalomalacia and gliosis throughout the right parietal lobe which extend to the junction of the splenium and body of the corpus callosum beneath the right parieto-occipital craniectomy. There are scattered ill-defined and confluent T2 FLAIR hyperintense signal changes in the supratentorial white matter which are nonspecific most compatible with chronic microvascular ischemic changes. There are chronic insults with encephalomalacia along the bilateral gyri recti and anterior left temporal lobe which are likely sequela of remote infection. Chronic anterior right striatocapsular lacunar infarct is unchanged Suprasellar region: No abnormalities. Craniocervical junction: Patent foramen magnum. No Chiari malformation. Vessels: Normal flow-voids in the arteries and sinuses. Incidental findings: Bilateral petrous apex cephaloceles. Nonspecific T2 hyperintense inflammatory changes in the right sphenoid sinus. IMPRESSION: 1. Nonspecific small dependent debris in the occipital horns of the lateral ventricles. Debris related to CSF infection is in the differential. No mass, abscess, hydrocephalus or significant mass effect. 2. Nonspecific pachymeningeal thickening, possibly chronic secondary to reactive postsurgical changes or small degree of intracranial hypotension. Moreover, cannot differentiate from nonspecific meningitis and further evaluation is limited in the absence of a prior brain MRI for comparison. 3. Postsurgical changes with prior right parieto-occipital craniectomy with encephalomalacia in the underlying right parietal lobe and unchanged parafalcine/parietal-occipital convexity dural based dense calcification without mass effect. 4. Additional chronic findings include: Moderate chronic microvascular ischemic changes, right striatocapsular lacunar infarct, likely small parafalcine meningioma without mass effect, and small posttraumatic bifrontal and anterior left temporal pole insults. Comparison with any prior available outside brain MRI would be helpful. Signed by: Dr. aDniel Lebron M.D. on 12/21/2018 11:18 AM
--- NOTE | 2018-12-21 12:20 | NUR ---
ST NOTE: Att bedside swallow x 1 at 0955, pt in MRI, will return later today. Handoff to ZAIDA Walter
--- NOTE | 2018-12-21 12:20 | NUR ---
CALLED AND LEFT MESSAGE TO DR. STONE PERTAINING TO MRI RESULTS.
--- NOTE | 2018-12-21 13:52 | NUR ---
CM called Dr. Brown and informed him that PT saw pt and is recommending inpatient rehab. Dr. Brown stated no to inpatient rehab and that he wants pt to go to SNF - [facility] - today. CM to pt's bedside. Family at bedside. Stated pt's daughter Becca is the one who makes all the decisions. She is currently downstairs getting lunch. Left business card for family to call once Becca returns to pt's room.
[2018-12-21] MEDS ORDERED: ONDANSETRON HCL 4 MG ORAL DISINTEGRATING TAB PO PRN (14:00)
--- NOTE | 2018-12-21 14:38 | NUR ---
Spoke to pt's daughter Becca at bedside. Informed her of SNF eval order. She stated she was not familiar with any facilities since she has never had to look into any previously. Gave her a list of in network facilities. Becca chose [facility] as first option and [facility] as a second option, since they are close to her house. Signed choice letter placed in front of chart. Copy to Becca. CM called and spoke to [facility] with admissions at [facility]. Informed her of referral. She states they can usually get auth quickly with pt's insurance. Will call CM once they receive it. Referral was faxed.
--- NOTE | 2018-12-21 15:59 | NUR ---
Received call from [facility] with admissions at [facility]. She has received referral and has submitted to insurance. RTF started and given to community development director Leisa to place with pt's packet.
[2018-12-21] MEDS ORDERED: POLYETHYLENE GLYCOL 3350 17 GM PACK PO PRN (19:30)
[2018-12-21] MEDS: HYDROCODONE/APAP 7.5MG-325MG 1 EA TAB PO PRN (19:40)
[2018-12-22] VITALS (8 sets, daily range): BP systolic 121–167; BP diastolic 66–95
--- NOTE | 2018-12-22 02:10 | Consultation ---
DATE OF CONSULTATION: 12/21/2018 Neurology Consult Note HISTORY OF PRESENT ILLNESS: Ms. Everett is an 88-year-old right-hand dominant woman with past medical history significant for hypertension, a prior stroke with residual left hemiparesis, and a previously diagnosed benign brain tumor, status post resection with residual loss of vision and left hemiparesis admitted to [facility] on December 18, 2018, status post fall. On December 17, 2018, the patient fell at home and hit her head on an unknown object. Immediately prior to the fall, the patient endorses dizziness, which is further described as a vertiginous sensation. She does not report lightheadedness, chest pain or tightness, palpitations, shortness of breath, or an epigastric rising sensation. There was a loss of consciousness associated with the fall. The duration of loss of consciousness is unknown. When the patient regained consciousness, her vhrvjzvi-hi-yev activated her Life Alert necklace, Ms. Everett was taken to the emergency center at [facility] for further evaluation. While at [facility], the patient reportedly underwent imaging studies of the brain, cervical spine, lumbar spine, and pelvis. All of these studies were reportedly normal. Ms. Everett was discharged to home from the emergency center with instructions to follow up with her primary care physician as an outpatient. Later the same day, the patient developed nausea and vomiting. On the following day, December 18, 2018, Ms. Everett was brought to [facility] by her daughter. Ms. Everett was admitted to the hospital for further evaluation and treatment of nausea and vomiting, dehydration, and hypokalemia. Ms. Everett has experienced the following symptoms since her fall approximately four days ago. The patient does endorse a headache with pain located across the forehead and at the vertex of the skull. The pain is described as throbbing and is moderate in severity. Ms. Everett does not report photophobia or phonophobia associated with the headache. However, it should be noted the patient is legally blind. Ms. Everett does report nausea and vomiting associated with the headaches. She does not report a vertiginous sensation over the past three to four days. However, the patient does experience chronic intermittent vertigo. Ms. Everett's daughter, who is at the bedside, reports mild confusion as well. The above described symptoms have gradually improved over the past two to three days. Ms. Everett does not report neck pain or stiffness. The patient has not experienced similar symptoms previously. Ms. Everett does not endorse symptoms of recent infectious illness. REVIEW OF SYSTEMS: Nausea, vomiting, confusion, impairment of balance and gait, status post fall, headaches, vertigo (chronic, intermittent). Otherwise, a 12-point review of systems is negative. PAST MEDICAL HISTORY: Hypertension, osteoarthritis, prior history of seizures, prior stroke with residual left hemiparesis, previously diagnosed benign brain tumor status post resection. The patient's postoperative course was complicated by infection. Residual deficits from the neurosurgical procedure include loss of vision and left hemiparesis. Scoliosis. PAST SURGICAL HISTORY: Right hemicraniectomy with tumor resection, appendectomy, and tonsillectomy. PAST HOSPITALIZATIONS: Surgeries/procedures as listed, stroke, multiple hospitalizations for syncopal events. FAMILY MEDICAL HISTORY: The patient's paternal and maternal grandparents are . Their medical histories are unknown. Ms. Everett's father and mother are . They both had medical histories of coronary artery disease with myocardial infarction and strokes. The patient has two siblings, both sisters. Both sisters are alive. One sister has a history of hypertension, coronary artery disease, and breast cancer. The second sister is reportedly healthy. Ms. Everett had two children, one son and one daughter. The son is from liver disease. The daughter is alive and has hypertension. SOCIAL HISTORY: Ms. Everett is a . She is retired. The patient does report remote tobacco use, but has not smoked a cigarette in 65+ years. The patient does not report current or prior alcohol or recreational drug use. HOME MEDICATIONS: Plavix 75 mg by mouth daily, amlodipine 10 mg by mouth daily, lisinopril 40 mg by mouth daily, metoprolol 50 mg by mouth twice daily, pantoprazole 40 mg by mouth daily, [place] 7.5/325 mg one tablet by mouth every 6 hours as needed for pain. HOSPITAL MEDICATIONS: Norvasc, Plavix, [place], labetalol, lisinopril, metoprolol, morphine, Zofran, Protonix, and MiraLAX. ALLERGIES: TETANUS VACCINE/TOXOID. NO KNOWN FOOD ALLERGIES. NO KNOWN ALLERGIES TO LATEX. NO KNOWN ALLERGIES TO IODINE OR OTHER CONTRAST MATERIALS. PHYSICAL EXAMINATION: VITAL SIGNS: Height 65 inches, weight 118 pounds, BMI 19.7 kg/m2. Blood pressure 136/73 mmHg, pulse 68 beats per minute, respiratory rate 17 breaths per minute, and oxygen saturation 96% on room air. General: The patient is awake and alert, does not appear distressed. HEENT: Normocephalic. Ms. Everett has elizabeth over the left side of the scalp near the ear. Pupils are opacified. Moist mucous membranes. NECK: Supple. No appreciable thyromegaly. No appreciable carotid bruits. CARDIOVASCULAR: S1, S2, regular rate and rhythm. No murmurs, rubs, or gallops. RESPIRATORY: Clear to auscultation bilaterally. No wheezes, rhonchi, or rales. EXTREMITIES: The skin is warm and dry. No clubbing, cyanosis, or edema. The posterior tibial and dorsalis pedis pulses are 1+ and symmetric. SKIN: No rashes or lesions. NEUROLOGIC: Memory/Attention: The patient is awake and alert, oriented to person, place, time, and situation. Cranial Nerves: Cranial nerve I - not tested. Cranial nerve II, III, IV, and - pupils are opacified. Extraocular movements intact. No nystagmus. Cranial nerve V - sensation to light touch is intact in the bilateral V1 through V3 distributions. Strength in the temporalis and masseter muscles is within normal limits. Cranial nerve VII - the face is symmetric as are all facial movements. Strength is within normal limits. Cranial nerve VIII - hearing is diminished to finger rub bilaterally. Cranial nerve IX, X - the soft palate elevates equally and symmetrically. Cranial nerve XI - normal strength of the bilateral sternocleidomastoid and trapezius muscles. Cranial nerve XII - the tongue protrudes midline and moves symmetrically from alti-wh-bgst. Strength: Bulk is diminished throughout. Strength is 5/5 in the right deltoid, biceps, triceps, wrist flexors and extensors, finger flexors and extensors, intrinsic hand muscles, hip flexors, knee flexors and extensors, ankle dorsiflexion and plantar flexion, and intrinsic foot muscles. Tone is normal in the right arm and right leg. Strength is grossly 4+/5 in the left arm. Strength is grossly 4/5 in the left leg. Tone is increased in the left arm and left leg. DTRs: Deep tendon reflexes are 2+ at the right triceps, biceps, brachioradialis, and patella. Deep tendon reflexes are 3+ at the left triceps, biceps, brachioradialis, and patella. Deep tendon reflexes are absent and symmetric at the Achilles. Plantar responses are flexor on the right and extensor on the left. Sensation: Sensation is intact to light touch in both arms and both legs. Cerebellar: Ebhyle-vakk-tayisd and heel-perry movements are intact with mild dysmetria of the left arm, within the bounds of paresis. Gait: Deferred. Speech: Spontaneous speech is very mildly dysarthric without aphasia. Repetition is intact. Involuntary movements: None. Pronator Drift: As per motor exam. LABORATORY DATA: The most recent comprehensive metabolic panel is significant for carbon dioxide of 21, total protein 5.7, and albumin of 2.9. Cardiac enzymes are negative x3. TSH is 0.280. The CBC with differential and platelets reveals a white blood cell count of 8.48 with 77.0% neutrophils, 8.4% lymphocytes, 11.0% monocytes, 2.1% eosinophils, and 0.4% basophils. The hemoglobin and hematocrit are 11.1 and 33.7, respectively. The platelet count is 242. The coagulation profile is within normal limits. A urinalysis reveals slightly cloudy urine with 1+ protein and 1+ ketones. A urine culture collected on December 18, 2018, revealed no growth after 36-48 hours. DIAGNOSTIC STUDIES: Electrocardiogram on 12/18/2018: Normal sinus rhythm at 64 beats per minute. Left axis deviation. Chest x-ray on 12/18/2018: No acute thoracic abnormality. CT of the brain without contrast of 12/18/2018: On my review, there is no evidence of recent large territorial ischemia, hemorrhage, mass, or mass effect. There are surgical changes due to a prior right parieto-occipital craniectomy with underlying right parietal lobe encephalomalacia. There is an unchanged right parafalcine/parieto-occipital convexity dural-based dense calcification, probably a meningioma. A chronic lacunar infarct is seen in the right striatocapsular region. Chronic bilateral inferior frontal and left temporal insults are seen, probably posttraumatic. There are findings compatible with moderate chronic small vessel ischemic disease. MRA of the brain and neck on 12/21/2018: There are no major branch occlusions or flow-limiting stenosis in the [place]. The carotid and vertebral arteries are patent without flow-limiting stenoses. MRI of the brain without contrast of 12/21/2018: 1. Nonspecific small dependent debris in the occipital horns of the lateral ventricles. Debris related to CSF infection is in the differential. No mass, abscess, hydrocephalus, or significant mass effect. 2. Nonspecific pachymeningeal thickening, possibly chronic secondary to reactive postsurgical changes or small degree of intracranial hypotension. Moreover, cannot differentiate from nonspecific meningitis and further evaluation is limited in the absence of a prior brain MRI for comparison. 3. Postsurgical changes with prior right parieto-occipital craniectomy with encephalomalacia in the underlying right parietal lobe and unchanged parafalcine/parieto-occipital convexity dural-based dense calcification without mass effect. 4. Additional chronic findings include: Moderate chronic small-vessel ischemic disease, a right striatocapsular lacunar infarct, likely small parafalcine meningioma without mass effect, and small posttraumatic bifrontal and anterior left temporal pole insults. ASSESSMENT AND PLAN: Ms. Everett is an 88-year-old right-hand dominant woman with extensive past medical history, admitted to [facility] on December 18, 2018, status post fall with headache, nausea, vomiting, dizziness, and mild confusion. Per the patient and her family members at the bedside, these symptoms have gradually improved over the last two to three days. Ms. Everett has undergone a thorough neurological examination with findings detailed above. Her laboratory data and other diagnostic studies have been reviewed and are documented above. Due to the abnormalities on the patient's MRI of the brain without contrast, specifically the abnormalities concerning for meningitis, prompted this consultation. In my opinion, it is highly unlikely the patient has meningitis. These symptoms, which led to the patient's admission (headaches, dizziness, and mild confusion), are probably the result of postconcussion syndrome. Ms. Everett should receive symptomatic treatment on an as-needed basis. Both the patient and her family members were told these symptoms from postconcussion syndrome will gradually improve, but it may be several weeks before the patient returns to her neurological baseline. The differential diagnosis for the patient's symptoms was discussed with the patient and family members. All were in agreement. It is unlikely, Ms. Everett has meningitis. Therefore, further evaluation with a lumbar puncture will not be pursued. There are no other recommendations from the Neurology Service at this time. Please call again with any questions or concerns. Thank you for this consultation. TIME SPENT: 70 minutes. Trish Interiano MD CP/NATANAEL /[id number] [place]
[2018-12-22] MEDS: LABETALOL HCL 5 MG/ML 20ML VIAL IV PRN (05:42)
[2018-12-22] MEDS: HYDROCODONE/APAP 7.5MG-325MG 1 EA TAB PO PRN (05:55)
--- NOTE | 2018-12-22 07:00 | NUR ---
BEDSIDE SHIFT REPORT RECEIVED FROM NIGHT RN. PT DENIES NEEDS AT THIS TIME.
--- NOTE | 2018-12-22 07:06 | NUR ---
IM- progress note O/N no events REVIEW OF SYSTEMS: Denies any dizziness or chest pain. PHYSICAL EXAMINATION VITAL SIGNS: Have been reviewed. GENERAL: A tired-appearing woman resting in bed. HEENT: Atraumatic. CARDIOVASCULAR: Normal S1 and S2. LUNGS: Moderate breath sounds. ABDOMEN: Soft, nontender and nondistended. EXTREMITIES: No edema or calf tenderness. NEUROLOGICAL: Alert and appropriate. She is blind. She has left arm and left leg 4/5 motor strength. All other extremities are 4/5. SKIN: Dry. PSYCHIATRIC: Normal affect. LABS: Reviewed. MEDICATIONS: Reviewed. ASSESSMENT: An 87-year-old woman with: Acute gastroenteritis Dehydration Hypokalemia HTN Hx stroke Hx brain tumor Post concussion syndrome PLAN rehydrate replace K consider flagyl PT; SNF eval for rehab needs 12/20 cont PT; control BP. 12/21 snf placement pending; 12/22 MRI/A rev'd. Chronic findings; and possibly Postconcussion syndrome- per neurology; no further testing needed. d/c when bed at SNF. Edilberto Brown MD, PhD.
[2018-12-22] MEDS: PANTOPRAZOLE SOD 40 MG TABEC PO SCH (08:11)
[2018-12-22] MEDS: AMLODIPINE BESYLATE 10 MG TAB PO SCH (08:11)
[2018-12-22] MEDS: CLOPIDOGREL BISULFATE 75 MG TAB PO SCH (08:11)
[2018-12-22] MEDS: LISINOPRIL 20 MG TAB PO SCH (08:12)
[2018-12-22] MEDS: METOPROLOL SUCCINATE 50 MG TAB XL PO SCH ×2 (08:12→17:28)
[2018-12-22] MEDS ORDERED: METOPROLOL SUCCINATE 50 MG TAB XL PO SCH (09:00)
--- NOTE | 2018-12-22 11:20 | NUR ---
Spoke with Martha in admissions at [facility]. Still pending insurance auth.
--- NOTE | 2018-12-22 13:39 | Diagnostic Imaging Report ---
Exam: Modified barium swallow History: GERD, prior history of brain tumor, frequent respiratory infections. Comparison: None available Findings: Modified barium swallow was performed in conjunction with speech pathology. Patient was administered varying different consistencies of barium impregnated substances with fluoroscopic evaluation of the swallowing mechanism. Fluoroscopy time: 4.0 minutes Accumulative dose: 7.52 mGy Impression: There is trace penetration with all consistencies. No aspiration is noted. Please see the full report provided by the Speech Pathologist. Signed by: Dr. Christiano Elkins DO on 12/22/2018 1:36 PM
--- NOTE | 2018-12-22 16:03 | NUR ---
SPOKE TO DR. STONE ABOUT STAPLE REMOVAL. REPLY WAS TO LEAVE THEM FOR 1 MORE WEEK.
--- NOTE | 2018-12-22 16:31 | NUR ---
Called [facility] twice to get update on referral. Left message for [facility] with admission with callback number.
--- NOTE | 2018-12-22 19:35 | NUR ---
RECEIVED PATIENT. PATIENT IS RESTING IN BED, AAOX3. RESP EVEN AND UNLABORED. NO ACUTE DISTRESS NOTED. FAMILY AT BED SIDE. CALL LIGHT WITHIN REACH. BED LOW/LOCKED. CONTINUE TO MONITOR CLOSELY
[2018-12-23 00:39] VITALS: BP 158/90
[2018-12-23 06:05] VITALS: BP 170/85
--- NOTE | 2018-12-23 06:10 | NUR ---
D/C summary: Principal Dx: Acute gastroenteritis Dehydration Hypokalemia Post concussion syndrome Secondary Dx: HTN Hx stroke Hx brain tumor PLAN rehydrate replace K consider flagyl PT; SNF eval for rehab needs 12/20 cont PT; control BP. 12/21 snf placement pending; 12/22 MRI/A rev'd. Chronic findings; and possibly Postconcussion syndrome- per neurology; no further testing needed. d/c when bed at SNF. 12/23 control BP; d/c when bed available at SNF d/c >35mins stable f/u pcp 1 week and neurology 10 days d/c to snf Edilberto Brown MD, PhD.
[2018-12-23] MEDS: HYDRALAZINE HCL 10 MG TAB PO SCH ×2 (06:30→12:26)
[2018-12-23 07:48] VITALS: BP 163/82
[2018-12-23] MEDS: AMLODIPINE BESYLATE 10 MG TAB PO SCH (08:34)
[2018-12-23] MEDS: CLOPIDOGREL BISULFATE 75 MG TAB PO SCH (08:34)
[2018-12-23] MEDS: PANTOPRAZOLE SOD 40 MG TABEC PO SCH (08:34)
[2018-12-23] MEDS: LISINOPRIL 20 MG TAB PO SCH (08:34)
[2018-12-23 08:36] VITALS: BP 163/82
[2018-12-23] MEDS: METOPROLOL SUCCINATE 50 MG TAB XL PO SCH ×2 (08:36→16:24)
[2018-12-23 11:46] VITALS: BP 130/78
--- NOTE | 2018-12-23 14:23 | NUR ---
CALLED [employer] TO SEE IF AUTH WAS OBTAINED, NOT, CALLED STEPHIE MIRAMONTES OUT OF OFFICE CALLED YADIEL MIRAMONTES [phone] SHE STATES NEEDS PT NOTES AND PRIOR LEVEL OF CARE, FAXED TO HER AT [phone].
--- NOTE | 2018-12-23 15:35 | NUR ---
MINOR SPOKE TO LENIN MIRAMONTES WITH [employer] @ [phone]. PATIENT APPROVED FOR SNF PLACEMENT. PENDING DISCHARGE CM TO RECEIVE BED NUMBER AT FACILITY FOR TRANSFER. DISCHARGE CM MY NOTIFIED.
[2018-12-23 15:42] VITALS: BP 132/72
--- NOTE | 2018-12-23 16:38 | NUR ---
Report callled to Marcus browning and given to Karlee CERDA of patient's status.
--- NOTE | 2018-12-23 17:05 | NUR ---
Received MOT from [facility] with admissions [id number] Mendoza to attend RTF was completed and placed with pt's packet at nurses station. ZAIDA Stokes was notified.
[2018-12-23] MEDS: HYDROCODONE/APAP 7.5MG-325MG 1 EA TAB PO PRN (17:58)
--- NOTE | 2018-12-23 18:07 | NUR ---
Right FA IV discontinued. No signs of infiltration noted. 2x2 gauze and tape placed. Taken via stretcher. AAOX3 to time, person, place. Respirations even and unlabored. Transfer package given to [facility]. All personal belongings taken with patient.
[2018-12-23] MEDS ORDERED: ZOLPIDEM TARTRATE 5 MG TAB PO PRN (21:00)
== END 2018-12-23 18:10 ==
LOC: ER 12:41 → ERHOLD 17:23 → INTOOBSV 17:23 → MED/SURG2 20:46
PROVIDERS: ADMIT Internal Medicine; ATTEND Internal Medicine
DX: K52.9 Noninfective gastroenteritis and colitis, unspecified (principal); F07.81 Postconcussional syndrome; I10 Essential (primary) hypertension; K21.9 Gastro-esophageal reflux disease without esophagitis; M19.90 Unspecified osteoarthritis, unspecified site; M41.9 Scoliosis, unspecified; Z82.49 Family history of ischemic heart disease and other diseases of the circulatory system; E86.0 Dehydration; E87.6 Hypokalemia; I69.398 Other sequelae of cerebral infarction; I69.354 Hemiplegia and hemiparesis following cerebral infarction affecting left non-dominant side; H54.8 Legal blindness, as defined in USA; Z88.0 Allergy status to penicillin; Z88.7 Allergy status to serum and vaccine; R26.9 Unspecified abnormalities of gait and mobility; R53.81 Other malaise
CPT/HCPCS: 36415 ×2; 70450; 70544; 70547; 70551; 71045; 74230; 80053 ×2; 81001; 82550 ×2; 82553 ×2; 83735; 84443; 84484 ×2; 85025 ×2; 85610; 85730; 87086; 92526 ×2; 92610; 92611; 93005; 96374; 96376 ×2; 97116 ×3; 97139 ×2; 97162; 99284; C9113 ×3; G0378 ×6; J2270 ×2; J2405 ×2; J3480; J3490; J7030; S0164 ×3

== ENCOUNTER 2019-08-10 11:25 | Observation (INO) | payer MEDICARE ==
[~2019-08-10] VITALS: Ht 165.1 cm; Wt 51.8 kg
[~2019-08-10 11:25] MED LIST changes: +METOPROLOL SUCC25 MG PO; +PROTONIX40 MG/ML PO; +TOPROL XL25 MG PO
[2019-08-10 11:54] LABS: BASOPHILS # (AUTO) 0.1 (0.0-0.1); BASOPHILS % 0.9 % (0.0-1.0); EOSINOPHILS # (AUTO) 0.4 (0.0-0.4); EOSINOPHILS % 4.3 % (0.0-6.0); HEMATOCRIT 40.1 % (34.2-44.1); LYMPHOCYTES # (AUTO) 1.5 (1.0-3.2); LYMPHOCYTES % 18.5 % (18.0-39.1); MEAN CORPUSCULAR HEMOGLOBIN 27.8 pg (28-32); MEAN CORPUSCULAR HGB CONC 32.4 g/dL (31-35); MEAN CORPUSCULAR VOLUME 85.7 fL (81-99); MONOCYTES # (AUTO) 1.1 (0.2-0.8); MONOCYTES % 13.2 % (4.4-11.3); NEUTROPHILS # (AUTO) 5.2 (2.1-6.9); NEUTROPHILS % 62.7 % (38.7-80.0); PLATELET COUNT 274 x10e3/uL (140-360); RED BLOOD COUNT 4.68 x10e6/uL (3.6-5.1); RED CELL DISTRIBUTION WIDTH 13.4 % (11.7-14.4)
[2019-08-10 12:05] LABS: INR 0.94; PROTHROMBIN TIME 13.1 seconds (11.9-14.5)
[2019-08-10 12:06] LABS: PARTIAL THROMBOPLASTIN TIME 29.7 seconds (23.8-35.5)
[2019-08-10 12:11] LABS: ALBUMIN/GLOBULIN RATIO 1.3 (0.8-2.0); CALCIUM 9.2 mg/dL (8.4-10.2); CREATININE, SERUM 0.98 mg/dL (0.57-1.11); MAGNESIUM 1.8 MG/DL (1.3-2.1)
--- NOTE | 2019-08-10 12:51 | Diagnostic Imaging Report ---
Chest, portable AP view History: Left-sided weakness Comparison: Chest radiograph dated 12/18/2018 IMPRESSION: The cardiomediastinal silhouette and pulmonary vasculature are within normal limits. The lungs are clear without evidence of consolidation or effusion. There are no acute osseous abnormalities. Signed by: Gary Marie MD on 08/10/2019 12:48 PM
--- NOTE | 2019-08-10 13:02 | Diagnostic Imaging Report ---
History:Left-sided weakness Comparison studies:MRI brain 12/21/2018 Technique: Axial images were obtained from the skull base to the vertex. Coronal and sagittal images reconstructed from the axial data. Intravenous contrast: None Dose modulation, iterative reconstruction, and/or weight based adjustment of the mA/kV was utilized to reduce the radiation dose to as low as reasonably achievable. Findings: Scalp/skull: Right parietal craniectomy changes. Extra-axial spaces: No masses. No fluid collections. Brain sulci: Mildly prominent. Ventricles: Moderate dilation of the posterior right lateral ventricle secondary to adjacent encephalomalacia. Mild compensatory dilatation. No hydrocephalus. Parenchyma: Cortical-based hypodensity at the right parietal lobe and pericentral region, underlying the craniotomy site Scattered and confluent hypodensities in the supratentorial white matter are small vessel ischemic changes. No masses, hemorrhage, acute or chronic cortical vascular insults. Sellar/suprasellar region: No abnormalities. Craniocervical junction: Patent foramen magnum. No Chiari one malformation. Incidental findings: Atherosclerotic calcifications in the carotid siphons . Impression: No acute abnormalities. Chronic findings: 1. Mild generalized volume loss. 2. Moderate supratentorial white matter small vessel ischemic changes. 3. Right parietal and pericentral cystic encephalomalacia underlying right parietal craniectomy site, this explain left-sided weakness. Signed by: DR Jean Miller M.D. on 08/10/2019 1:00 PM
[2019-08-10 13:14] LABS: CLARITY,URINE CLEAR (CLEAR); COLOR,URINE YELLOW (YELLOW); KETONES,URINE NEGATIVE (NEGATIVE); LEUKOCYTE ESTERASE ,URINE NEGATIVE (NEGATIVE); NITRITE,URINE NEGATIVE (NEGATIVE); PROTEIN,URINE DIPSTICK TRACE (NEGATIVE)
[2019-08-10 13:15] LABS: BILIRUBIN,URINE NEGATIVE (NEGATIVE); URINE UROBILINOGEN 1 mg/dL (0.2 - 1)
[2019-08-10 13:23] LABS: BACTERIA,URINE RARE /HPF; EPITHELIAL CELLS,URINE FEW /LPF; RBC,URINE 0-5 /HPF (0-5); WBC,URINE (MAN) 0-5 /HPF (0-5)
[2019-08-10] MEDS ORDERED: ONDANSETRON HCL INJ 2MG/ML 2ML 2 MG/ML VIAL IV PRN ×2 (13:30→16:00)
[2019-08-10] MEDS ORDERED: POTASSIUM CHLORIDE 20 MEQ TAB CR PO NR (13:30)
[2019-08-10] MEDS ORDERED: ASPIRIN 81 MG CHEW TAB PO ONE (14:00)
--- NOTE | 2019-08-10 15:45 | NUR ---
H&P PRIMARY CARE PHYSICIAN: Dr. Javier Cristina CHIEF COMPLAINT: Left arm tingling. HISTORY OF PRESENT ILLNESS: This is an 89-year-old woman with a history of stroke, and left sided chronic hemiparesis, now with jerking movements of left arm. Family note that pt recently started seroquel 4 days ago; Symptoms of j erkign started after starting seroquel. PAST MEDICAL HISTORY: Stroke with residual left-sided weakness, brain tumor in 1961, which was benign, hypertension, legal blindness, history of seizures, Left arm paresthesia, APRIL, Acute gastroenteritis, Post-Concussive syndrome, legal blindness PAST SURGICAL HISTORY: Appendectomy. ALLERGIES: see EMR FAMILY HISTORY/SOCIAL HISTORY: Patient is . She has 2 children. No alcohol, illicits or cigarettes. MEDICATIONS: see EMR REVIEW OF SYSTEMS: no cp/sob/dizziness/skin rash/back apin/f/c/s/N/V/D/ PHYSICAL EXAMINATION VITAL SIGNS: Have been reviewed. GENERAL: A tired-appearing woman resting in bed. HEENT: Atraumatic. CARDIOVASCULAR: Normal S1 and S2. LUNGS: Moderate breath sounds. ABDOMEN: Soft, nontender and nondistended. EXTREMITIES: No edema or calf tenderness. NEUROLOGICAL: Alert and appropriate. She is blind. left arm and left leg 4/5 motor strength. Left hand with contracture. SKIN: Dry. PSYCHIATRIC: Normal affect. LABS: Reviewed. MEDICATIONS: Reviewed. ASSESSMENT: An 89-year-old woman with: Tremor due to seroquel- stop drug Hypokalemia- replace and recheck APRIL- IVF Right parietal encephalomalacia HTN Prop: scd Dispo: PT consult; OT consult; Edilberto Brown MD, PhD.
[2019-08-10] MEDS ORDERED: SODIUM CHLORIDE 0.9% 1000ML 1,000 ML IV SCH (16:00)
[2019-08-10] MEDS ORDERED: SENNOSIDES 8.6 MG TAB PO PRN (16:00)
[2019-08-10] MEDS ORDERED: ACETAMINOPHEN 325 MG TAB PO PRN (16:00)
[2019-08-10] MEDS: LEVETIRACETAM 500 MG TAB PO SCH (16:31)
[2019-08-10] MEDS ORDERED: HYDRALAZINE HCL 20 MG/ML VIAL IV STA (16:34)
--- NOTE | 2019-08-10 16:42 | Diagnostic Imaging Report ---
History: Left-sided weakness today Comparison studies: Same day CT head MRI brain 12/21/2018 Technique: Pre-contrast: Sagittal T2; axial T1-IR, MPGR, DWI, T2 FLAIR. Post-contrast: axial and coronal T1. 2-D cervical and 3-D intracranial [id number] MRA's . Intravenous contrast: None Findings: Brain: Bone marrow: Right parietal craniectomy Brain sulci: Mildly prominent . Ventricles: Dilation of the right posterior lateral ventricle with communication with the cystic encephalomalacia . No hydrocephalus. Right paracentral calcified lesion measuring 1.5 cm, stable from previous examination, probably related to meningioma. Parenchyma: Scattered and confluent T2/FLAIR hyperintensities of the periventricular and deep white matter, nonspecific and most commonly seen with moderate severe chronic microvascular ischemic changes. Cystic encephalomalacia at the right parietal lobe involving the paracentral region underlying the craniectomy changes. Encephalomalacia of the bilateral gyri recti left temporal pole, likely related to previous trauma. Severe atrophic changes of the splenium of the corpus callosum. No masses, hemorrhage or acute vascular insults. Suprasellar region: No abnormalities. Craniocervical junction: No abnormalities. Patent foramen magnum. No Chiari one malformation. Vessels: Normal flow-voids in the arteries and sinuses. Cervical MRA: Carotid arteries: No flow abnormalities . Vertebral arteries: No flow abnormalities . Intracranial MRA: Internal carotid arteries: No flow abnormalities . Normal flow at the left lateral A1 and M1. Irregular flow at the bilateral M2 segments Vertebrobasilar circulation: Normal flow at vertebral and basilar arteries. Asymmetric decreased flow at the left LIDDER mid and distal segments with origin. Normal flow at the right LIDDER . Anatomical variants: Acom: Visualized. Pcoms: Visualized bilaterally. Vertebral arteries: Co-dominant. IMPRESSION: Brain: 1. No acute intracranial abnormality or change from previous examination. 2. Moderate chronic microvascular ischemic changes of the white matter 3. Right parieto-occipital craniectomy with underlying cystic encephalomalacia of the right parietal lobe and paracentral region. 4. Bilateral gyri recti left temporal pole encephalomalacia, stable. 5. Right paracentral posterior extra-axial calcified mass, likely related to meningioma, stable from previous exam. Cervical and intracranial MRAs: 1. No hemodynamically significant stenosis of the neck arteries 2. No large vessel occlusion of the [place] of [place]. 3. Asymmetric decreased flow at the left mid and distal LIDDER and irregular flow at the bilateral and M2 segments, probably related to atherosclerotic changes. Signed by: DR Jean Miller M.D. on 08/10/2019 4:39 PM
--- NOTE | 2019-08-10 16:42 | Diagnostic Imaging Report ---
History: Left-sided weakness today Comparison studies: Same day CT head MRI brain 12/21/2018 Technique: Pre-contrast: Sagittal T2; axial T1-IR, MPGR, DWI, T2 FLAIR. Post-contrast: axial and coronal T1. 2-D cervical and 3-D intracranial [id number] MRA's . Intravenous contrast: None Findings: Brain: Bone marrow: Right parietal craniectomy Brain sulci: Mildly prominent . Ventricles: Dilation of the right posterior lateral ventricle with communication with the cystic encephalomalacia . No hydrocephalus. Right paracentral calcified lesion measuring 1.5 cm, stable from previous examination, probably related to meningioma. Parenchyma: Scattered and confluent T2/FLAIR hyperintensities of the periventricular and deep white matter, nonspecific and most commonly seen with moderate severe chronic microvascular ischemic changes. Cystic encephalomalacia at the right parietal lobe involving the paracentral region underlying the craniectomy changes. Encephalomalacia of the bilateral gyri recti left temporal pole, likely related to previous trauma. Severe atrophic changes of the splenium of the corpus callosum. No masses, hemorrhage or acute vascular insults. Suprasellar region: No abnormalities. Craniocervical junction: No abnormalities. Patent foramen magnum. No Chiari one malformation. Vessels: Normal flow-voids in the arteries and sinuses. Cervical MRA: Carotid arteries: No flow abnormalities . Vertebral arteries: No flow abnormalities . Intracranial MRA: Internal carotid arteries: No flow abnormalities . Normal flow at the left lateral A1 and M1. Irregular flow at the bilateral M2 segments Vertebrobasilar circulation: Normal flow at vertebral and basilar arteries. Asymmetric decreased flow at the left BATTERY PLATE REMOVER mid and distal segments with origin. Normal flow at the right BATTERY PLATE REMOVER . Anatomical variants: Acom: Visualized. Pcoms: Visualized bilaterally. Vertebral arteries: Co-dominant. IMPRESSION: Brain: 1. No acute intracranial abnormality or change from previous examination. 2. Moderate chronic microvascular ischemic changes of the white matter 3. Right parieto-occipital craniectomy with underlying cystic encephalomalacia of the right parietal lobe and paracentral region. 4. Bilateral gyri recti left temporal pole encephalomalacia, stable. 5. Right paracentral posterior extra-axial calcified mass, likely related to meningioma, stable from previous exam. Cervical and intracranial MRAs: 1. No hemodynamically significant stenosis of the neck arteries 2. No large vessel occlusion of the [place] of [place]. 3. Asymmetric decreased flow at the left mid and distal BATTERY PLATE REMOVER and irregular flow at the bilateral and M2 segments, probably related to atherosclerotic changes. Signed by: DR Jean Miller M.D. on 08/10/2019 4:39 PM
--- NOTE | 2019-08-10 16:42 | Diagnostic Imaging Report ---
History: Left-sided weakness today Comparison studies: Same day CT head MRI brain 12/21/2018 Technique: Pre-contrast: Sagittal T2; axial T1-IR, MPGR, DWI, T2 FLAIR. Post-contrast: axial and coronal T1. 2-D cervical and 3-D intracranial [id number] MRA's . Intravenous contrast: None Findings: Brain: Bone marrow: Right parietal craniectomy Brain sulci: Mildly prominent . Ventricles: Dilation of the right posterior lateral ventricle with communication with the cystic encephalomalacia . No hydrocephalus. Right paracentral calcified lesion measuring 1.5 cm, stable from previous examination, probably related to meningioma. Parenchyma: Scattered and confluent T2/FLAIR hyperintensities of the periventricular and deep white matter, nonspecific and most commonly seen with moderate severe chronic microvascular ischemic changes. Cystic encephalomalacia at the right parietal lobe involving the paracentral region underlying the craniectomy changes. Encephalomalacia of the bilateral gyri recti left temporal pole, likely related to previous trauma. Severe atrophic changes of the splenium of the corpus callosum. No masses, hemorrhage or acute vascular insults. Suprasellar region: No abnormalities. Craniocervical junction: No abnormalities. Patent foramen magnum. No Chiari one malformation. Vessels: Normal flow-voids in the arteries and sinuses. Cervical MRA: Carotid arteries: No flow abnormalities . Vertebral arteries: No flow abnormalities . Intracranial MRA: Internal carotid arteries: No flow abnormalities . Normal flow at the left lateral A1 and M1. Irregular flow at the bilateral M2 segments Vertebrobasilar circulation: Normal flow at vertebral and basilar arteries. Asymmetric decreased flow at the left FINE ARTS CHAIR mid and distal segments with origin. Normal flow at the right FINE ARTS CHAIR . Anatomical variants: Acom: Visualized. Pcoms: Visualized bilaterally. Vertebral arteries: Co-dominant. IMPRESSION: Brain: 1. No acute intracranial abnormality or change from previous examination. 2. Moderate chronic microvascular ischemic changes of the white matter 3. Right parieto-occipital craniectomy with underlying cystic encephalomalacia of the right parietal lobe and paracentral region. 4. Bilateral gyri recti left temporal pole encephalomalacia, stable. 5. Right paracentral posterior extra-axial calcified mass, likely related to meningioma, stable from previous exam. Cervical and intracranial MRAs: 1. No hemodynamically significant stenosis of the neck arteries 2. No large vessel occlusion of the [place] of [place]. 3. Asymmetric decreased flow at the left mid and distal FINE ARTS CHAIR and irregular flow at the bilateral and M2 segments, probably related to atherosclerotic changes. Signed by: DR Jean Miller M.D. on 08/10/2019 4:39 PM
[2019-08-10] MEDS ORDERED: POTASSIUM CHLORIDE 20 MEQ TAB CR PO ONE (16:44)
[2019-08-10] MEDS ORDERED: HYDRALAZINE HCL 20 MG/ML VIAL IV PRN (16:45)
[2019-08-10 17:46] VITALS: BP 162/93
[2019-08-10] MEDS ORDERED: HYDROCODON-ACE1 EA11 PO (18:08)
[2019-08-10] MEDS ORDERED: SEROQUEL25 MG PO (18:10)
[2019-08-10] MEDS ORDERED: HYDROCODONE/APAP 5MG-325MG TAB PO PRN (18:30)
--- NOTE | 2019-08-10 19:00 | NUR ---
RECEIVED PATIENT IN BEDSIDE SHIFT REPORT. PATIENT RESTING IN BED AT THIS TIME. NO PAIN REPORTED. NO S&S OF DISTRESS NOTED. IV TO L FA 20G ASYMPTOMATIC, INTACT, AND PATENT, RUNNING NS AT 50ML/HR. BED ALARM ACTIVE. BED LOCKED IN LOWEST POSITION, SIDE RAILS UPX2, CALL LIGHT IN REACH.
[2019-08-10 19:21] VITALS: BP 162/93
[2019-08-10 19:54] LABS: CREATINE KINASE MB 6.8 ng/mL (0-5.0)
[2019-08-10 20:00] VITALS: BP 136/76
[2019-08-10 20:44] VITALS: BP 136/76
[2019-08-10] MEDS ORDERED: ZOLPIDEM TARTRATE 5 MG TAB PO PRN (21:00)
[2019-08-11] VITALS: BP 126/89
--- NOTE | 2019-08-11 00:02 | Consultation ---
DATE OF CONSULTATION: Neurology Consultation HISTORY OF PRESENT ILLNESS: Ms. Evy Everett is an 89-year-old right-handed female, who comes to my attention for a left-sided twitching of onset this morning. The patient's baseline has history of a brain tumor, which required surgical resection of the right hemisphere of the brain causing left-sided hemiparesis. She is baseline blind from the surgery. She has scoliosis. She is nonambulatory now times about six months. She is cognizant. She is aware. She is able to provide information as needed. REVIEW OF SYSTEMS: Back pain, improved. She says she has had left arm and leg twitching yesterday, but no cognitive issues. PHYSICAL EXAMINATION: HEENT: Shows an ocular paresis with the right eye deviating toward the right. Pupils are cloudy and minimally responsive to nonresponsive. Face appears symmetric. Speech is clear. NECK: Neck is in hyperextended posture. There is no nuchal rigidity. ABDOMEN: Soft, nontender. CARDIOVASCULAR: Regular rate and rhythm. PULMONARY: Clear to auscultation. EXTREMITIES: Able to lift bilateral upper extremities 3/5 to 4/5. Bilateral lower extremities 2/5. Reflexes are brisk. Toes are upgoing bilaterally. ASSESSMENT AND PLAN: I am seeing the patient for left hemibody twitching, thought likely to be a stroke. An MRI is pending. She is not a tPA candidate given time of onset and the variable nature of symptoms, they seem to wax and wane, but she is not doing it right now. Keppra p.o. b.i.d. as well as empiric therapy for seizures. She does have history of epilepsy as per the patient's records and we will then monitor for clinical changes . MD ADOLFO PEARSON/TAMERAL /[id number]
[2019-08-11 04:00] VITALS: BP 134/87
[2019-08-11 05:26] LABS: BASOPHILS # (AUTO) 0.1 (0.0-0.1); BASOPHILS % 1.3 % (0.0-1.0); EOSINOPHILS # (AUTO) 0.3 (0.0-0.4); EOSINOPHILS % 6.2 % (0.0-6.0); HEMATOCRIT 36.1 % (34.2-44.1); HEMOGLOBIN 11.7 g/dL (12.0-16.0); LYMPHOCYTES # (AUTO) 1.1 (1.0-3.2); LYMPHOCYTES % 24.2 % (18.0-39.1); MEAN CORPUSCULAR HEMOGLOBIN 27.5 pg (28-32); MEAN CORPUSCULAR HGB CONC 32.4 g/dL (31-35); MEAN CORPUSCULAR VOLUME 84.9 fL (81-99); MONOCYTES # (AUTO) 0.5 (0.2-0.8); MONOCYTES % 10.6 % (4.4-11.3); NEUTROPHILS # (AUTO) 2.6 (2.1-6.9); NEUTROPHILS % 57.5 % (38.7-80.0); PLATELET COUNT 240 x10e3/uL (140-360); RED BLOOD COUNT 4.25 x10e6/uL (3.6-5.1); RED CELL DISTRIBUTION WIDTH 13.6 % (11.7-14.4)
[2019-08-11 05:47] LABS: ALANINE AMINOTRANSFERASE 8 IU/L (0-55); ALBUMIN 3.4 g/dL (3.5-5.0); ALBUMIN/GLOBULIN RATIO 1.4 (0.8-2.0); ALKALINE PHOSPHATASE 74 IU/L (40-150); ANION GAP 12.7 mmol/L (8-16); BLOOD UREA NITROGEN 18 mg/dL (7-26); BUN/CREATININE RATIO 22 (6-25); CARBON DIOXIDE 23 mmol/L (22-29); CHLORIDE 111 mmol/L (98-107); CHOLESTEROL 155 MD/DL (0-199); CREATININE, SERUM 0.83 mg/dL (0.57-1.11); EST GLOMERULAR FILTRATION RATE > 60 ML/MIN (60-); GLUCOSE 93 mg/dL (74-118); HDL CHOLESTEROL 52 MG/DL (40-60); LDL CHOLESTEROL 88 MG/DL (60-130); SODIUM 143 mmol/L (136-145); TRIGLYCERIDES 75 MG/DL (0-149)
[2019-08-11 05:49] LABS: POTASSIUM 3.7 mmol/L (3.5-5.1)
[2019-08-11] MEDS ORDERED: ATORVASTATIN CA20 MG PO (06:43)
[2019-08-11] MEDS ORDERED: ASPIRIN EC81 MG PO (06:43)
[2019-08-11] MEDS ORDERED: KEPPRA500 MG PO (06:45)
--- NOTE | 2019-08-11 06:47 | NUR ---
D/C summary Principal Dx: Tremor due to seroquel- stop drug Hypokalemia- replace and recheck APRIL- IVF Epilepsy history Secondary Dx: Right parietal encephalomalacia HTN Prop: scd Dispo: PT consult; OT consult; started on KEppra for hx Seizures; No more seroquel d/c home f/u pcp 1 week and neurology 1 week stable d/c>35mins Edilberto Brown MD, PhD.
--- NOTE | 2019-08-11 07:01 | NUR ---
s: no acute events no recurrence of tremor or myoclonia 96.3 86 134/87 calm eomi pupil non reactive, opacified no nuchal rigidity rrr cta soft abdomen scolioric bue 4/5 ble 2/5 length dependant nueropathy ap/ on keppra for possible seizure outpt eeg and evaluaiton neuro stable ok to dc
[2019-08-11 07:21] LABS: CREATINE KINASE MB 2.7 ng/mL (0-5.0)
[2019-08-11] MEDS ORDERED: PANTOPRAZOLE SOD 40 MG TABEC PO SCH (07:30)
[2019-08-11 07:37] VITALS: BP 134/87
[2019-08-11 07:59] VITALS: BP 146/78
[2019-08-11] MEDS: LEVETIRACETAM 500 MG TAB PO SCH (08:28)
[2019-08-11] MEDS ORDERED: ASPIRIN 81 MG ENTERIC COATED PO SCH (09:00)
[2019-08-11] MEDS ORDERED: ONDANSETRON HCL 4 MG ORAL DISINTEGRATING TAB PO PRN (09:00)
[2019-08-11] MEDS ORDERED: AMLODIPINE BESYLATE 10 MG TAB PO SCH (09:00)
[2019-08-11] MEDS ORDERED: CLOPIDOGREL BISULFATE 75 MG TAB PO SCH (09:00)
[2019-08-11 09:20] VITALS: BP 134/87
== END 2019-08-11 11:55 | disposition home or self-care (01) ==
LOC: ER 11:25 → ERHOLD 13:18 → MED/SURG2 17:18
PROVIDERS: ADMIT Internal Medicine; ATTEND Internal Medicine
DX: G25.1 Drug-induced tremor (principal); T43.595A Adverse effect of other antipsychotics and neuroleptics, initial encounter; G40.909 Epilepsy, unspecified, not intractable, without status epilepticus; I69.354 Hemiplegia and hemiparesis following cerebral infarction affecting left non-dominant side; I10 Essential (primary) hypertension; H54.8 Legal blindness, as defined in USA; N17.9 Acute kidney failure, unspecified; E87.6 Hypokalemia; G93.89 Other specified disorders of brain; Z88.0 Allergy status to penicillin; Z88.7 Allergy status to serum and vaccine
CPT/HCPCS: 36415 ×2; 70450; 70544; 70547; 70551; 71045; 80053 ×2; 80061; 81001; 82550 ×2; 82553 ×2; 83735; 83880; 84134; 84484 ×2; 85025 ×2; 85610; 85730; 87086; 93005; 99284; G0378 ×2; J0360; J7030; S0164